=== PATIENT | female | born 1950 | race Caucasian/White ===

== ENCOUNTER → 2024-04-19 19:37 | Outpatient (REF) | payer MEDICARE, OTHER, SELFPAY | LOC: WDC 19:37 | PROVIDERS: ATTENDING PHYSICIAN Family Medicine | DX: Z12.31 Encounter for screening mammogram for malignant neoplasm of breast (principal); Z00.00 Encounter for general adult medical examination without abnormal findings | CPT/HCPCS: 77063; 77067 ==

== ENCOUNTER 2025-01-04 06:20 | Day surgery (SDC) | payer MEDICARE, OTHER, SELFPAY | END 2025-01-04 16:10 | disposition home or self-care (01) | LOC: GI 06:20 | PROVIDERS: ATTENDING PHYSICIAN Surgery | DX: K62.5 Hemorrhage of anus and rectum (principal); K57.30 Diverticulosis of large intestine without perforation or abscess without bleeding; K64.9 Unspecified hemorrhoids | CPT/HCPCS: 45378 ==